=== PATIENT | male | born 1960 | race Caucasian/White ===

== ENCOUNTER 2016-07-29 22:38 | Emergency (ER) | payer MEDICARE, OTHER ==
--- NOTE | 2016-07-29 22:58 | UC ---
Teodoro Reilly SooYoung, celesteibed for Calvin Vásquez MD on 07/29/16 at 2250 . Substance Abuse HPI - HPI Summary HPI Summary: LEVEL 5 CAVEAT: HPI LIMITED DUE TO PT CONDITION, INTOXICATED. A 56 y/o M LETTY presents to ED with EtOH intoxication. Per EMS, pt called 911 for his friend who was unresponsive on the couch, and pt's KENNA was [phone]. Pt denies doing anything illegal. - History Of Current Complaint Chief Complaint: EDSubstanceAbuse Stated Complaint: ALCOHOL CONSUMPTION Time Seen by Provider: 07/29/16 22:40 Hx Obtained From: Patient - Allergies/Home Medications Allergies/Adverse Reactions: Allergies Allergy/AdvReac Type Severity Reaction Status Date / Time Acetaminophen [From Tylenol] Allergy Unknown Unknown Verified 11/15/15 19:16 Reaction Details PMH/Surg Hx/FS Hx/Imm Hx - Additional Past Medical History Additional PMH: LEVEL 5 CAVEAT: PMHx / FHx / SHx LIMITED DUE TO PT CONDITION, INTOXICATED. Previously Healthy: No Endocrine History Of: Reports: Diabetes Cardiovascular History Of: Reports: Hypertension Denies: Pacemaker/ICD Psychological History Of: Reports: Anxiety, Depression - no documented hx - Surgical History Surgical History: Yes Surgery Procedure, Year, and Place: colon resection-1996 - Family History Known Family History: Positive: Other - ETOH ABUSE - Social History Alcohol Use: Daily Alcohol Amount: ETOH intoxication Substance Use Type: None Substance Use Comment - Amount & Last Used: PT has not used since admission 02/12 Smoking Status (MU): Light Every Day Tobacco Smoker Type: Cigars Household Exposure Type: Cigars - Immunization History Most Recent Influenza Vaccination: feb 2014 Most Recent Tetanus Shot: unknown Most Recent Pneumonia Vaccination: never Review of Systems Constitutional: Other - Per EMS, KENNA 429. - Comments Additional Review of Systems Comments: LEVEL 5 CAVEAT: ROS LIMITED DUE TO PT CONDITION, INTOXICATED. Physical Exam Vital Signs: Initial Vital Signs Temp 99.2 F 07/29/16 22:39 Pulse 96 07/29/16 22:39 Resp 22 07/29/16 22:39 BP 159/102 07/29/16 22:39 Pulse Ox 98 07/29/16 22:39 The documentation as recorded by the Teodoro chadwick SooYoung accurately reflects the service I personally performed and the decisions made by me, Calvin Vásquez MD.
--- NOTE | 2016-07-29 23:18 | ED ---
Teodoro Reilly SooYoung, scribed for Calvin Vásquez MD on 07/29/16 at 2313 . Substance Abuse/Use - HPI Summary HPI Summary: LEVEL 5 CAVEAT: HPI LIMITED DUE TO PT CONDITION, INTOXICATED. A 56 y/o M LETTY presents to ED with EtOH intoxication. Per EMS, pt called 911 for his friend who was unresponsive on the couch, and pt's KENNA was 429. Pt denies doing anything illegal. - History Of Current Complaint Chief Complaint: EDSubstanceAbuse Stated Complaint: ALCOHOL CONSUMPTION Time Seen by Provider: 07/29/16 22:40 Hx Obtained From: Patient - Allergies/Home Medications Allergies/Adverse Reactions: Allergies Allergy/AdvReac Type Severity Reaction Status Date / Time Acetaminophen [From Tylenol] Allergy Unknown Unknown Verified 11/15/15 19:16 Reaction Details PMH/Surg Hx/FS Hx/Imm Hx Previously Healthy: No - LEVEL 5 CAVEAT: PMHx / FHx / PSHx LIMITED DUE TO PT CONDITION, INTOXICATED. Endocrine/Hematology History: Reports: Hx Diabetes Cardiovascular History: Reports: Hx Hypertension Denies: Hx Pacemaker/ICD Respiratory History: Reports: Hx Seasonal Allergies, Other Respiratory Problems/ Disorders - hx of bronchitis GI History: Reports: Hx Gastroesophageal Reflux Disease, Other GI Disorders - resection of lg intestine-colon ca History: Reports: Hx Benign Prostatic Hyperplasia Musculoskeletal History: Reports: Hx Arthritis, Hx Gout Sensory History: Reports: Hx Contacts or Glasses - pt did not bring Denies: Hx Hearing Aid Opthamlomology History: Reports: Hx Contacts or Glasses - pt did not bring Neurological History: Reports: Hx Nerve Disease - Neuropathy, Other Neuro Impairments/Disorders - states multiple head injuries over childhood Psychiatric History: Reports: Hx Anxiety, Hx Depression - no documented hx Denies: Hx Eating Disorder, Hx Panic Disorder - Cancer History Cancer Type, Location and Year: Colon CA 1996 Hx Chemotherapy: Yes - Surgical History Surgery Procedure, Year, and Place: colon resection-1996 Hx Anesthesia Reactions: No - Immunization History Date of Tetanus Vaccine: unk Date of Influenza Vaccine: unk Infectious Disease History: No Infectious Disease History: Denies: Traveled Outside the [place] in Last 30 Days - Family History Known Family History: Positive: Other - ETOH ABUSE - Social History Alcohol Use: Daily Alcohol Amount: ETOH intoxication Hx Substance Use: Yes Substance Use Type: Reports: None Substance Use Comment - Amount & Last Used: PT has not used since admission 02/12 Hx Tobacco Use: Yes Smoking Status (MU): Light Every Day Tobacco Smoker Type: Cigars Review of Systems - ROS Summary Review of Systems Summary: LEVEL 5 CAVEAT: ROS LIMITED DUE TO PT CONDITION, INTOXICATED. Positive: Other - KENNA 429, per EMS All Other Systems Reviewed And Are Negative: Yes Physical Exam Triage Information Reviewed: Yes Vital Signs On Initial Exam: Initial Vitals Temp Pulse Resp BP Pulse Ox 99.2 F 96 22 159/102 98 07/29/16 22:39 07/29/16 22:39 07/29/16 22:39 07/29/16 22:39 07/29/16 22:39 Vital Signs Reviewed: Yes Appearance: Positive: No Pain Distress Skin: Positive: Warm - aob Head/Face: Positive: Normal Head/Face Inspection Eyes: Positive: SAGE ENT: Positive: Hearing grossly normal Neck: Positive: Supple Respiratory/Lung Sounds: Positive: Clear to Auscultation, Breath Sounds Present Cardiovascular: Positive: RRR Abdomen Description: Positive: Nontender, Soft Bowel Sounds: Positive: Present Musculoskeletal: Positive: Strength/ROM Intact Neurological: Positive: Sensory/Motor Intact, Alert, Oriented to Person Place, Time - Perez Coma Scale Coma Scale Total: 15 Diagnostics - Vital Signs Vital Signs Temp Pulse Resp BP Pulse Ox 07/29/16 22:39 99.2 F 96 22 159/102 98 - Laboratory Lab Statement: Any lab studies that have been ordered have been reviewed, and results considered in the medical decision making process. Re-Evaluation - Re-Evaluation First Eval Change: Improved Course/Dx - Diagnoses Provider Diagnoses: Alcohol intoxication Discharge - Discharge Plan Condition: Stable Disposition: HOME Patient Education Materials: Alcohol Intoxication (ED) Referrals: Jovani HERNÁNDEZ,Mayo Riley [Primary Care Provider] - The documentation as recorded by the Teodoro chadwick SooYoung accurately reflects the service I personally performed and the decisions made by me, Calvin Vásquez MD.
[2016-07-30 06:16] VITALS: BP 171/101
== END 2016-07-30 06:53 | disposition home or self-care (01) ==
LOC: ED 22:38
DX: F10.129 Alcohol abuse with intoxication, unspecified (principal); Y90.8 Blood alcohol level of 240 mg/100 ml or more; I10 Essential (primary) hypertension; E11.8 Type 2 diabetes mellitus with unspecified complications; K21.9 Gastro-esophageal reflux disease without esophagitis; Z85.038 Personal history of other malignant neoplasm of large intestine; D29.1 Benign neoplasm of prostate; F17.290 Nicotine dependence, other tobacco product, uncomplicated
CPT/HCPCS: 99282

== ENCOUNTER 2017-01-21 16:32 | Emergency (ER) | payer SELFPAY ==
[2017-01-21 16:55] VITALS: BP 114/66
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
--- NOTE | 2017-01-21 19:31 | RAD ---
INDICATION: Right facial abrasion after a fall COMPARISON: Most recent comparison CT of the brain is dated November 15, 2015 TECHNIQUE: Contiguous axial sections of the brain were obtained from the skull base to the vertex without contrast. FINDINGS: The ventricles, cisterns and sulci exhibit mild involutional changes. The jenkins-white matter differentiation is adequately maintained and there is no sulcal effacement. No significant focal abnormality or mass effect is present. There is no evidence for intracranial hemorrhage. No significant focal osseous abnormality is present. The visualized portion of the paranasal sinuses and mastoid air cells appear clear. IMPRESSION: No CT evidence of acute intracranial abnormality.
[2017-01-21] MEDS ORDERED: Ketorolac INJ* 60 MG/2 ML VIAL IM ONE (19:33)
[2017-01-21] MEDS ORDERED: Tetan/Diph/Pertus SYR(Tdap)* 0.5 ML SYR(BOOSTRIX) use SYR IM ONE (19:33)
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
== END 2017-01-21 20:15 | disposition home or self-care (01) ==
LOC: ED 16:32
DX: S00.83XA Contusion of other part of head, initial encounter (principal); S00.81XA Abrasion of other part of head, initial encounter; M54.5 Low back pain; F10.129 Alcohol abuse with intoxication, unspecified; K21.9 Gastro-esophageal reflux disease without esophagitis; E11.9 Type 2 diabetes mellitus without complications; I10 Essential (primary) hypertension; Z87.891 Personal history of nicotine dependence; W19.XXXA Unspecified fall, initial encounter; Y92.9 Unspecified place or not applicable
CPT/HCPCS: 70450; 72110; 90471; 90715; 96372; 99283; J1885

== ENCOUNTER 2021-12-16 20:16 | Inpatient (IN) ==
[2021-12-16] MEDS ORDERED: Rocuronium 50 mg VIAL 10 mg/ml 5 ml VIAL (50 mg) ONE (20:21)
[2021-12-16] MEDS ORDERED: Succinylcholine 200 mg VIAL 20 mg/ml 10 ml VIAL (200 mg) ONE (20:22)
[2021-12-16] MEDS ORDERED: Etomidate 40 mg/20 ml (2 MG/ML) 20 ml VIAL (40 mg) ONE (20:28)
[2021-12-16] MEDS ORDERED: Propofol 10 mg/ml 100 ML BTL 100 ML ONE (20:30)
[2021-12-16] MEDS: Propofol 10 mg/ml 100 ML BTL 100 ML IV SCH ×2 (20:40→23:59)
[2021-12-16] MEDS ORDERED: NS 0.9% 1000 ml BAG 1,000 ML IV ONE (20:42)
[2021-12-16 21:08] LABS: ABS Eosinophils 0.1 10^3/ul (0-0.6); ABS Monocytes 0.8 10^3/ul (0-0.8); Eosinophil % 1.5 %; Hematocrit 50 % (42-52); Hemoglobin 16.6 g/dL (14.0-18.0); Lymphocyte % 33.7 %; Mean Corpuscular HGB Conc 34 g/dL (31-36); Mean Corpuscular Hemoglobin 32 pg (27-31); Mean Corpuscular Volume 95 fL (80-94); Mean Platelet Volume 7.5 fL (7.4-10.4); Platelet Count 325 10^3/uL (150-450); Red Blood Count 5.22 10^6 /uL (4.18-5.48); Red Cell Distribution Width 16 % (10-15)
[2021-12-16 21:31] LABS: Albumin 4.5 g/dL (3.2-5.2); Calcium 8.9 mg/dL (8.6-10.3); Potassium 4.1 mmol/L (3.5-5.0); Total Protein 7.4 g/dL (6.4-8.9)
[2021-12-16 21:32] LABS: Albumin/Globulin Ratio 1.6 (1-3); Globulin 2.9 g/dL (2-4); Total Bilirubin 0.6 mg/dL (0.2-1.0)
[2021-12-16 21:43] LABS: PCO2 Arterial 40 mmHg (35-45); PO2 Arterial 365 mmHg (80-100)
[2021-12-16 22:06] LABS: Urine Appearance Clear; Urine Bilirubin Negative (Negative); Urine Blood Negative (Negative); Urine Color Straw; Urine Glucose Negative (Negative); Urine Ketones Trace (Negative); Urine Nitrite Negative (Negative); Urine Protein Negative (Negative); Urine Specific Gravity 1.005 (1.002-1.030); Urine Urobilinogen Negative (Negative)
[2021-12-16 22:23] LABS: Urine Benzodiazepine Screen None Detected (None Detect); Urine Cannabinoids Screen Presumptive Positive (None Detect); Urine Opiates Screen None Detected (None Detect)
[2021-12-16 22:24] LABS: High Sensitivity Troponin 1 Hr 9 pg/mL (<20)
[2021-12-16] MEDS ORDERED: Thiamine 100 MG/ML 2 ml VIAL (200 mg) IM ONE (22:41)
[2021-12-16] MEDS: NS 0.9% 1000 ml BAG 1,000 ML IV SCH (22:55)
[2021-12-16 23:11] LABS: Magnesium 2.1 mg/dL (1.9-2.7)
[2021-12-16] MEDS: Enoxaparin 40 MG/0.4 ML SYR SUBCUT SCH (23:58)
[2021-12-16] MEDS: Pantoprazole VIAL 40 MG VIAL IV SCH (23:59)
[2021-12-17 00:17] LABS: PCO2 Arterial 39 mmHg (35-45); PO2 Arterial 140 mmHg (80-100)
[2021-12-17] MEDS ORDERED: Midazolam 50 MG VIAL IV DRIP 50 ML IV SCH (01:00)
[2021-12-17] MEDS: Chlorhexidine MOUTHWASH 0.12% 15 ML UDC TOPICAL SCH ×6 (02:27→22:30)
[2021-12-17] MEDS: Propofol 10 mg/ml 100 ML BTL 100 ML IV SCH ×7 (03:32→22:29)
[2021-12-17] MEDS: NS 0.9% 1000 ml BAG 1,000 ML IV SCH (05:38)
[2021-12-17 05:47] LABS: ABS Eosinophils 0.1 10^3/ul (0-0.6); ABS Lymphocytes 2.1 10^3/ul (1.0-4.8); ABS Monocytes 0.6 10^3/ul (0-0.8); ABS Neutrophils 2.7 10^3/ul (1.5-7.7); Eosinophil % 1.4 %; Hematocrit 45 % (42-52); Lymphocyte % 38.2 %; Mean Corpuscular HGB Conc 33 g/dL (31-36); Mean Corpuscular Hemoglobin 33 pg (27-31); Mean Corpuscular Volume 99 fL (80-94); Mean Platelet Volume 8.1 fL (7.4-10.4); Nucleated Red Blood Cells % 0.1; Platelet Count 103 10^3/uL (150-450); Red Blood Count 4.53 10^6 /uL (4.18-5.48); Red Cell Distribution Width 16 % (10-15); White Blood Count 5.4 10^3/uL (3.5-10.8)
[2021-12-17 05:59] LABS: CO2 Carbon Dioxide 16 mmol/L (22-32); Calcium 7.4 mg/dL (8.6-10.3); Chloride 106 mmol/L (101-111); Sodium 133 mmol/L (135-145)
[2021-12-17 06:04] LABS: Anion Gap 11 mmol/L (2-11)
[2021-12-17 06:05] LABS: Blood Urea Nitrogen 11 mg/dL (6-24); Glucose 72 mg/dL (70-100); eGFR CKD-EPI 104.6 (>60)
[2021-12-17 06:56] LABS: Magnesium 1.8 mg/dL (1.9-2.7); Potassium Redraw 3.9 mmol/L (3.5-5.0)
[2021-12-17] MEDS ORDERED: Magnesium Sulfate IV 1GM/100ML 1 GM/100 ML BAG IV ONE (07:32)
[2021-12-17] MEDS: Lactated Ringers 1000 ml BAG 1,000 ML IV SCH ×2 (07:56→19:57)
[2021-12-17] MEDS: Thiamine 100 MG/ML 2 ml VIAL 500 MG in NS 0.9% 250 ml 250 ML IV SCH ×3 (08:33→23:28)
[2021-12-17] MEDS: Pantoprazole VIAL 40 MG VIAL IV SCH (08:34)
[2021-12-17] MEDS ORDERED: Multivitamins/Minerals TAB PO SCH (09:00)
[2021-12-17] MEDS: Azithromycin 500 mg/250 ml NS 500 MG/250 ML BAG IVPB SCH (11:23)
[2021-12-17] MEDS: cefTRIAXone 1 gm/50 mL D5W 1 GM/50 ML BAG IV SCH (11:23)
[2021-12-17] MEDS: Dexmedetomidine 1,000 MCG in NS 0.9% 250 ml 240 ML IV SCH (16:40)
[2021-12-17] MEDS: Enoxaparin 40 MG/0.4 ML SYR SUBCUT SCH (19:39)
[2021-12-18 00:39] LABS: ABS Eosinophils 0.1 10^3/ul (0-0.6); ABS Monocytes 0.6 10^3/ul (0-0.8); Eosinophil % 2.5 %; Hematocrit 43 % (42-52); Hemoglobin 14.2 g/dL (14.0-18.0); Lymphocyte % 17.5 %; Mean Corpuscular HGB Conc 34 g/dL (31-36); Mean Corpuscular Hemoglobin 32 pg (27-31); Mean Corpuscular Volume 96 fL (80-94); Mean Platelet Volume 7.7 fL (7.4-10.4); Nucleated Red Blood Cells % 0.1; Platelet Count 172 10^3/uL (150-450); Red Blood Count 4.43 10^6 /uL (4.18-5.48); Red Cell Distribution Width 16 % (10-15); White Blood Count 5.7 10^3/uL (3.5-10.8)
[2021-12-18 01:20] LABS: Calcium 7.7 mg/dL (8.6-10.3); Magnesium 1.9 mg/dL (1.9-2.7); eGFR CKD-EPI 104.6 (>60)
[2021-12-18] MEDS: Chlorhexidine MOUTHWASH 0.12% 15 ML UDC TOPICAL SCH ×4 (01:39→14:50)
[2021-12-18] MEDS: Propofol 10 mg/ml 100 ML BTL 100 ML IV SCH ×4 (01:39→07:35)
[2021-12-18] MEDS: Thiamine 100 MG/ML 2 ml VIAL 500 MG in NS 0.9% 250 ml 250 ML IV SCH ×2 (07:36→15:18)
[2021-12-18] MEDS: Pantoprazole VIAL 40 MG VIAL IV SCH (08:23)
[2021-12-18] MEDS: Azithromycin 500 mg/250 ml NS 500 MG/250 ML BAG IVPB SCH (08:27)
[2021-12-18] MEDS: Lactated Ringers 1000 ml BAG 1,000 ML IV SCH (08:47)
[2021-12-18] MEDS: cefTRIAXone 1 gm/50 mL D5W 1 GM/50 ML BAG IV SCH (08:47)
[2021-12-18] MEDS: Dexmedetomidine 1,000 MCG in NS 0.9% 250 ml 240 ML IV SCH (09:13)
[2021-12-18 10:50] LABS: PCO2 Arterial 30 mmHg (35-45); PO2 Arterial 89 mmHg (80-100)
[2021-12-18] MEDS ORDERED: Lorazepam PYXIS KEY PRN (11:32)
[2021-12-18] MEDS: Enoxaparin 40 MG/0.4 ML SYR SUBCUT SCH (19:37)
[2021-12-18] MEDS: LORazepam 2 mg VIAL 1 ml IV PUSH SCH ×2 (20:12→22:55)
[2021-12-19] MEDS: Thiamine 100 MG/ML 2 ml VIAL 500 MG in NS 0.9% 250 ml 250 ML IV SCH ×3 (00:54→21:04)
[2021-12-19] MEDS: Dexmedetomidine 1,000 MCG in NS 0.9% 250 ml 240 ML IV SCH (02:47)
[2021-12-19 05:24] LABS: ABS Eosinophils 0.2 10^3/ul (0-0.6); ABS Lymphocytes 1.3 10^3/ul (1.0-4.8); ABS Monocytes 0.7 10^3/ul (0-0.8); ABS Neutrophils 7.4 10^3/ul (1.5-7.7); Eosinophil % 1.9 %; Hematocrit 41 % (42-52); Lymphocyte % 13.2 %; Mean Corpuscular HGB Conc 34 g/dL (31-36); Mean Corpuscular Hemoglobin 33 pg (27-31); Mean Corpuscular Volume 95 fL (80-94); Mean Platelet Volume 7.9 fL (7.4-10.4); Platelet Count 149 10^3/uL (150-450); Red Blood Count 4.28 10^6 /uL (4.18-5.48); Red Cell Distribution Width 15 % (10-15); White Blood Count 9.6 10^3/uL (3.5-10.8)
[2021-12-19 06:05] LABS: Calcium 8.1 mg/dL (8.6-10.3); Magnesium 1.6 mg/dL (1.9-2.7); Potassium 3.4 mmol/L (3.5-5.0)
[2021-12-19] MEDS ORDERED: Magnesium Sulfate 2 gm BAG 2 GM/50 ML BAG IVPB ONE (07:17)
[2021-12-19] MEDS ORDERED: Potassium Chloride LIQUID 20 MEQ/15 ML LIQUID PO ONE (07:17)
[2021-12-19] MEDS: cefTRIAXone 1 gm/50 mL D5W 1 GM/50 ML BAG IV SCH (07:41)
[2021-12-19] MEDS: Pantoprazole VIAL 40 MG VIAL IV SCH (08:28)
[2021-12-19] MEDS: Multivitamins/Minerals TAB PO SCH (08:28)
[2021-12-19] MEDS: Azithromycin 500 mg/250 ml NS 500 MG/250 ML BAG IVPB SCH (09:34)
[2021-12-19] MEDS: KCL 20 MEQ/100 ML IVPREMIX 20 MEQ/100 ML BAG IV SCH ×3 (11:14→15:14)
[2021-12-19] MEDS: Enoxaparin 40 MG/0.4 ML SYR SUBCUT SCH (21:05)
[2021-12-20 06:05] LABS: ABS Eosinophils 0.5 10^3/ul (0-0.6); ABS Lymphocytes 1.3 10^3/ul (1.0-4.8); ABS Monocytes 0.7 10^3/ul (0-0.8); ABS Neutrophils 5.7 10^3/ul (1.5-7.7); Eosinophil % 5.7 %; Hematocrit 42 % (42-52); Hemoglobin 13.9 g/dL (14.0-18.0); Lymphocyte % 16.2 %; Mean Corpuscular HGB Conc 34 g/dL (31-36); Mean Corpuscular Hemoglobin 32 pg (27-31); Mean Corpuscular Volume 96 fL (80-94); Mean Platelet Volume 8.5 fL (7.4-10.4); Nucleated Red Blood Cells % 0.1; Platelet Count 160 10^3/uL (150-450); Red Blood Count 4.35 10^6 /uL (4.18-5.48); Red Cell Distribution Width 15 % (10-15); White Blood Count 8.2 10^3/uL (3.5-10.8)
[2021-12-20] MEDS: LORazepam 2 mg VIAL 1 ml IV PUSH SCH (06:22)
[2021-12-20 06:37] LABS: Magnesium 1.8 mg/dL (1.9-2.7); Potassium 3.6 mmol/L (3.5-5.0); eGFR CKD-EPI 105.6 (>60)
[2021-12-20] MEDS: Thiamine 100 MG/ML 2 ml VIAL 500 MG in NS 0.9% 250 ml 250 ML IV SCH ×2 (08:26→23:10)
[2021-12-20] MEDS: cefTRIAXone 1 gm/50 mL D5W 1 GM/50 ML BAG IV SCH (09:44)
[2021-12-20] MEDS: Azithromycin 500 mg/250 ml NS 500 MG/250 ML BAG IVPB SCH (09:44)
[2021-12-20] MEDS: Pantoprazole VIAL 40 MG VIAL IV SCH (09:44)
[2021-12-20] MEDS: Multivitamins/Minerals TAB PO SCH (09:45)
[2021-12-20] MEDS: Enoxaparin 40 MG/0.4 ML SYR SUBCUT SCH (23:10)
[2021-12-21] MEDS: Multivitamins/Minerals TAB PO SCH (08:55)
[2021-12-21] MEDS: Pantoprazole VIAL 40 MG VIAL IV SCH (09:14)
[2021-12-21 09:15] VITALS: BP 163/86
[2021-12-21] MEDS: Thiamine 100 MG/ML 2 ml VIAL 500 MG in NS 0.9% 250 ml 250 ML IV SCH (10:01)
[2021-12-21] MEDS: cefTRIAXone 1 gm/50 mL D5W 1 GM/50 ML BAG IV SCH (12:31)
== END 2021-12-21 19:20 | disposition home health service (06) | DRG 208 ==
LOC: ED 20:16 → SUATTDRO 22:54 → EDHOLD 22:54 → ICU 23:07 → MEDTELE 12-20 12:34
PROVIDERS: ADMIT Internal Medicine; ATTEND Internal Medicine